=== PATIENT | male | born 1990 | race Two or more races ===

== ENCOUNTER 2021-07-17 12:39 | Emergency (ER) | payer MEDICAID ==
[~2021-07-17] VITALS: Ht 170.2 cm; Wt 77.1 kg
[2021-07-17] MEDS ORDERED: LIDOCAINE 1% INJ 50 ML MDV IJ ONE (12:54)
--- NOTE | 2021-07-17 14:15 | NUR ---
DR. MEHTA REPAIRED LAC ON LT LIP & LT HAND, PT NOHEMY WELL. DRESSING APPLIED BY EMT, NO ACTIVE BLEEDING NOTED.
--- NOTE | 2021-07-17 14:25 | NUR ---
Patient discharged to home in stable condition. Written and verbal after care instructions given. Patient verbalizes understanding of instruction.
[2021-07-17] MEDS ORDERED: TDAP [DIPH/PERTUSSIS/TET] 0.5 ML VIAL IM ONE (14:30)
[2021-07-17 14:45] VITALS: BP 124/75
== END 2021-07-17 14:25 | disposition home or self-care (01) ==
LOC: ER 12:48
DX: S01.511A Laceration without foreign body of lip, initial encounter (principal); S61.412A Laceration without foreign body of left hand, initial encounter; W19.XXXA Unspecified fall, initial encounter; Y93.89 Activity, other specified; Y92.89 Other specified places as the place of occurrence of the external cause; Y99.8 Other external cause status
CPT/HCPCS: 12002; 40650; 99284; A6403; J3490